=== PATIENT | male | born 1990 | race Caucasian/White ===

== ENCOUNTER 2024-04-14 03:47 | Emergency (ER) | payer MEDICAID ==
[~2024-04-14] VITALS: Ht 175.3 cm; Wt 72.0 kg
[2024-04-14 03:58] VITALS: TEMP 98.3; O2SAT 98
[2024-04-14 04:29] LABS: BASOPHILS % 0.5 % (0.0-2.0); EOSINOPHILS % 0.6 % (0.0-5.0); HEMATOCRIT. 45.7 % (42.0-52.0); HEMOGLOBIN. 14.8 g/dL (14.0-18.0); MEAN CORPUSCULAR HEMOGLOBIN 27.7 pg (28.0-32.0); MEAN CORPUSCULAR HGB CONC 32.3 g/dL (31.0-37.0); MEAN CORPUSCULAR VOLUME 85.7 fL (80.0-94.0); MONOCYTES % 3.7 % (2.0-8.0); NEUTROPHILS % 78.2 % (40.0-76.0); PLATELET 212 x1000/uL (130-400); RED BLOOD CELL COUNT 5.33 mill/uL (4.7-6.1); RED CELL DISTRIBUTION WIDTH 14.6 % (11.6-14.6); WHITE BLOOD COUNT 7.6 x1000/uL (4.5-11.0)
[2024-04-14 04:37] LABS: CHLORIDE 104 mEq/L (98-107); POTASSIUM 3.3 mEq/L (3.5-5.1); SODIUM 137 mEq/L (136-145)
[2024-04-14 04:38] LABS: CARBON DIOXIDE 23 mEq/L (21-32)
[2024-04-14 04:39] LABS: CALCIUM 9.2 mg/dL (8.7-10.4)
[2024-04-14 04:43] LABS: CREATININE 0.9 mg/dL (0.6-1.3)
[2024-04-14 04:45] LABS: ALANINE AMINOTRANSFERASE 42 IU/L (10-49); ALBUMIN 4.7 g/dL (3.2-4.8); ASPARTATE AMINOTRANSFERASE 22 IU/L (<34)
[2024-04-14 04:46] LABS: BILIRUBIN TOTAL 0.8 mg/dL (0.1-1.0); PROTEIN TOTAL 7.5 g/dL (6.0-8.3)
[2024-04-14 05:00] LABS: GLUCOSE 506 mg/dL (70-105); UREA NITROGEN BLOOD < 5 mg/dL (9-23)
[2024-04-14] MEDS: SODIUM CHLORIDE 0.9% 1,000 ML IV ONE ×2 (05:40)
[2024-04-14] MEDS: POTASSIUM CHLORIDE 20MEQ/PACKET PO ONE (05:49)
[2024-04-14] MEDS: INSULIN REGULAR (HUMULIN R) 1000UNITS/10ML VIAL SUBCUT ONE (05:49)
[2024-04-14 06:01] LABS: ETHANOL BLOOD 404 mg/dL (<10)
[2024-04-14] MEDS ORDERED: POTASSIUM CHLORIDE 20MEQ/PACKET PO ONE (08:00)
[2024-04-14] MEDS: INSULIN LISPRO 100 UNITS/ML SUBCUT ONE (08:32)
[2024-04-14 08:48] VITALS: BP 114/81; PULSE 93; RESP 15; O2SAT 98
== END 2024-04-14 09:08 | disposition home or self-care (01) ==
LOC: ER 03:47 → EDBD 03:47 → ER 09:08
DX: F10.129 Alcohol abuse with intoxication, unspecified (principal); E11.65 Type 2 diabetes mellitus with hyperglycemia; Y90.8 Blood alcohol level of 240 mg/100 ml or more
CPT/HCPCS: 80053; 80320; 82962; 83690; 85025; 36415; 96360; 96372; 99284; J1815 ×2; J7030; Z7610; G0480